=== PATIENT | female | born 1935 | race Caucasian/White ===

== ENCOUNTER 2017-08-08 08:26 | Emergency (ER) | payer MEDICARE, BC ==
--- NOTE | 2017-08-08 09:18 | PCM.SN ---
- Free Text/Narrative Note: This is Dr. Doe dictating an addendum note as his supervising physician on this case. I agree with history and physical and the patient has only urinary complaints no flank pain fever nausea vomiting or anterior abdominal pain. She says the only reason why she came to the ER as because she could not get an appointment with her provider in the clinic. The patient does admit to me that she drinks mostly coffee all day and is not very good about hydrating with water or other liquids. We will check the UA and treat appropriately and encourage hydration.
--- NOTE | 2017-08-08 09:39 | EDM.PDOC ---
ED HPI GENERAL MEDICAL PROBLEM - General Chief Complaint: Genitourinary Problem Stated Complaint: URINARY ISSUES Time Seen by Provider: 08/08/17 09:31 Source of Information: Reports: Patient History Limitations: Reports: No Limitations - History of Present Illness INITIAL COMMENTS - FREE TEXT/NARRATIVE: HISTORY AND PHYSICAL: History of present illness: 81-year-old female presenting with a 2 day history of dysuria without any fevers, flank pain, confusion. Patient states symptoms started on Monday, with simply burning on urination, she denied any history of fevers or chills, she denied any myalgia, she denied any decreased activity, she denied any confusion or falls, she denies any history of stress/urge incontinence, she denied any nausea, vomiting, diarrhea. She did state that she does have occasional constipation which is an ongoing issue as well as shortness of breath which is an ongoing issue that she sees her primary care physician. She has not been on any recent antibiotics. She states that she follows up with her primary care physician Dr. Fraser however she was unable to get in to see him for the past couple of days and so she came into the ER. Patient denies any vaginal discharge, any lesions/rash in the genitourinary area. She denies any history of recurrent UTIs. She does state that she did have a past medical history of bladder cancer but has not been an issue for quite some time. Review of systems: As per history of present illness and below otherwise all systems reviewed and negative. Past medical history: As per history of present illness and as reviewed below otherwise noncontributory. Surgical history: As per history of present illness and as reviewed below otherwise noncontributory. Social history: No reported history of drug or alcohol abuse. Family history: As per history of present illness and as reviewed below otherwise noncontributory. Physical exam: HEENT: Atraumatic, normocephalic, pupils reactive, negative for conjunctival pallor or scleral icterus, mucous membranes moist, throat clear, neck supple, nontender, trachea midline. Lungs: Clear to auscultation, breath sounds equal bilaterally, chest nontender. Heart: S1S2, regular, negative for clicks, rubs, or JVD. Abdomen: Soft, nondistended, nontender. Negative for masses or hepatosplenomegaly. Negative for costovertebral tenderness. Pelvis: Stable nontender. Genitourinary: Deferred. Rectal: Deferred. Extremities: Atraumatic, negative for cords or calf pain. Neurovascular unremarkable, no bilateral lower extremity edema. Neuro: Awake, alert, oriented. Cranial nerves II through XII grossly unremarkable. Motor and sensory unremarkable throughout. Exam nonfocal. Diagnostics: UA: 4-5 WBC, Few bacteria, negative leukocyte esterase, nitrates negative Urine culture: pending Therapeutics: Bactrim for 5 days Impression: 82-year-old female presenting with 2 day history of dysuria, without fevers, flank plain, confusion most likely etiology is uncomplicated urinary tract infection, other etiologies to consider include pyelonephritis, complicated urinary tract infection processes. Plan: Based on the age of the patient and her urine analysis which is dirty as she does have some WBC, some bacteria without any leukocyte esterase or nitrates the decision has been made to treat the patient's uncomplicated urinary tract infection with Bactrim for 5 days. Patient is to follow-up with primary care physician in the next 2 days. If the patient has any episodes of fevers, confusion, or worsening symptoms she is to either come back to the ER or see her primary care physician right away. Definitive disposition and diagnosis as appropriate pending reevaluation and review of above. Bladder Pain Score (Numeric/FACES): 6 - Related Data Allergies Allergy/AdvReac Type Severity Reaction Status Date / Time No Known Allergies Allergy Verified 08/08/17 08:44 Home Meds: Home Meds Amitriptyline HCl 25 mg PO BID 07/08/14 [History] Aspirin [Ecotrin] 81 mg PO DAILY 07/08/14 [History] Cholecalciferol (Vitamin D3) [Vitamin D3] 2,000 units PO DAILY 07/08/14 [History ] Metoprolol Tartrate [Lopressor] 25 mg PO DAILY 07/08/14 [History] Magnesium Citrate 400 mg PO DAILY 07/04/15 [History] [place]-3/DHA/Epa/Fish Oil [[place]-3 EC Softgel] 1,000 mg PO DAILY 07/04/15 [ History] Citalopram Hydrobromide [Celexa] 20 mg PO DAILY 11/30/15 [History] Clopidogrel Bisulfate [Plavix] 75 mg PO DAILY 11/30/15 [History] Fish Oil/Borage/Flax/Om3,6,9#1 [Triple [place] Complex 3-6-9] 1 tab PO DAILY 11/30 [History] Hydrochlorothiazide/Losartan [Hyzaar 50-12.5 MG] 1 tab PO DAILY 11/30/15 [ History] atorvaSTATin Calcium [Atorvastatin Calcium] 20 mg PO DAILY 11/30/15 [History] Acetaminophen/HYDROcodone [[place] 325-5 MG] 1 tab PO Q4H PRN #40 tablet 12/02/15 [Rx] Sulfamethoxazole/Trimethoprim [Bactrim Ds Tablet] 1 each PO Q12HR 5 Days #10 tablet 08/08/17 [Rx] Past Medical History Other HEENT History: lump removal in the right ear almost 10 yrs ago Cardiovascular History: Reports: CAD, High Cholesterol, Hypertension, Stents Other Cardiovascular History: stent placement in June 2015 Gastrointestinal History: Reports: GERD, Hiatal Hernia Other Gastrointestinal History: Gallbladder CA Other OB/BYN History: Musculoskeletal History: Reports: Arthritis Other Musculoskeletal History: Carpal Tunnel Psychiatric History: Reports: Anxiety, Depression Oncologic (Cancer) History: Reports: Basal Cell Carcinoma, Bladder, Breast Other Oncologic History: recovered with those CA, fully treated almost 10 years ago - Past Surgical History Cardiovascular Surgical History: Reports: Coronary Artery Stent Female Surgical History: Reports: Breast Biopsy, Hysterectomy, Mastectomy Other Female Surgeries/Procedures: R mastectomy Oncologic Surgical History: Reports: Biopsy of Breast, Mastectomy Social & Family History - Family History Family Medical History: Noncontributory - Tobacco Use Smoking Status *Q: Current Every Day Smoker Years of Tobacco use: 60 Packs/Tins Daily: 1 Second Hand Smoke Exposure: Yes - Caffeine Use Caffeine Use: Reports: Coffee - Alcohol Use Days Per Week of Alcohol Use: 0 Number of Drinks Per Day: 0 Total Drinks Per Week: 0 - Recreational Drug Use Recreational Drug Use: No Drug Use in Last 12 Months: No ED ROS GENERAL - Review of Systems Review Of Systems: ROS reveals no pertinent complaints other than HPI. ED EXAM, RENAL/ - Physical Exam Exam: See Below (Please refer to the history of present illness) Course - Vital Signs Last Recorded V/S: Last Vital Signs Temp 37.1 C 08/08/17 08:37 Pulse 95 08/08/17 08:37 Resp 20 08/08/17 08:37 BP 119/70 08/08/17 08:37 Pulse Ox 95 08/08/17 08:37 - Orders/Labs/Meds Orders: Active Orders 24 hr Category Date Time Status CULTURE URINE [RM] Stat Lab 08/08/17 09:10 Received Labs: Laboratory Tests 08/08/17 Range/Units 09:10 Urine Color YELLOW Urine Appearance CLEAR Urine pH 6.0 (5.0-8.0) Ur Specific [place] 1.025 (1.001-1.035) Urine Protein 100 (NEGATIVE) mg/dL Urine Glucose (UA) NEGATIVE (NEGATIVE) mg/dL Urine Ketones TRACE H (NEGATIVE) mg/dL Urine Occult Blood NEGATIVE (NEGATIVE) Urine Nitrite NEGATIVE (NEGATIVE) Urine Bilirubin NEGATIVE (NEGATIVE) Urine Urobilinogen 0.2 (<2.0) EU/dL Ur Leukocyte Esterase NEGATIVE (NEGATIVE) Urine RBC 2-4 (0-2/HPF) Urine WBC 4-5 (0-5/HPF) Ur Epithelial Cells FEW (NONE-FEW) Urine Bacteria FEW (NEGATIVE) Departure - Departure Time of Disposition: 10:30 Disposition: Home, Self-Care 01 Condition: Good Clinical Impression: UTI, Urinary tract infectious disease, Dysuria - Discharge Information Prescriptions: Sulfamethoxazole/Trimethoprim [Bactrim Ds Tablet] 1 each PO Q12HR 5 Days #10 tablet Referrals: Jose Luis Oliveira DO [Physician] - 2 Days Forms: ED Department Discharge Additional Instructions: The following information is given to patients seen in the emergency department who are being discharged to home. This information is to outline your options for follow-up care. We provide all patients seen in our emergency department with a follow-up referral. The need for follow-up, as well as the timing and circumstances, are variable depending upon the specifics of your emergency department visit. If you don't have a primary care physician on staff, we will provide you with a referral. We always advise you to contact your personal physician following an emergency department visit to inform them of the circumstance of the visit and for follow-up with them and/or the need for any referrals to a consulting specialist. The emergency department will also refer you to a specialist when appropriate. This referral assures that you have the opportunity for follow-up care with a specialist. All of these measure are taken in an effort to provide you with optimal care, which includes your follow-up. Under all circumstances we always encourage you to contact your private physician who remains a resource for coordinating your care. When calling for follow-up care, please make the office aware that this follow-up is from your recent emergency room visit. If for any reason you are refused follow-up, please contact the [facility] Emergency Department at and asked to speak to the emergency department charge nurse. Diagnosis: Uncomplicated urinary tract infection Impressions/discharge instructions: Based on a urine analysis and your presenting symptoms you have a uncomplicated urinary tract infection. For the infection I am putting you on Bactrim; please take 1 pill every 12 hours for the next 5 days. If you have any episodes of fevers, confusion, falls, or worsening symptoms please do not hesitate to come back to the ER or see your primary care physician. Your urine also looked quite dark which indicated that you were slightly dehydrated, because you do take a lot of caffeine please make sure to drink a lot of water to have proper hydration. Please see your primary care physician Dr. Fraser in the next 2 days for an outpatient follow-up.
[2017-08-08 10:43] VITALS: BP 121/60
== END 2017-08-08 10:39 | disposition home or self-care (01) ==
LOC: MW.ED 08:26
DX: N39.0 Urinary tract infection, site not specified (principal); F17.210 Nicotine dependence, cigarettes, uncomplicated; I10 Essential (primary) hypertension; I25.10 Atherosclerotic heart disease of native coronary artery without angina pectoris; E78.00 Pure hypercholesterolemia, unspecified; K21.9 Gastro-esophageal reflux disease without esophagitis; M19.90 Unspecified osteoarthritis, unspecified site; F32.9 Major depressive disorder, single episode, unspecified; Z85.3 Personal history of malignant neoplasm of breast; Z85.828 Personal history of other malignant neoplasm of skin; Z85.51 Personal history of malignant neoplasm of bladder; Z90.11 Acquired absence of right breast and nipple; Z95.5 Presence of coronary angioplasty implant and graft; Z90.710 Acquired absence of both cervix and uterus; Z79.82 Long term (current) use of aspirin; Z79.899 Other long term (current) drug therapy
CPT/HCPCS: 81001; 87086; 99283

== ENCOUNTER 2017-09-10 10:55 | Inpatient (IN) | payer MEDICARE, BC ==
[2017-09-10] MEDS ORDERED: Albuterol/Ipratropium 3.0-0.5 MG/3 ML Neb Soln NEB ONE (11:10)
[2017-09-10] MEDS ORDERED: Sodium Chloride 0.9% 10 ML Syringe FLUSH PRN (11:15)
[2017-09-10] MEDS ORDERED: Sodium Chloride 0.9% 2.5 ML Syringe FLUSH PRN (11:15)
--- NOTE | 2017-09-10 11:15 | EDM.PDOC ---
ED HPI GENERAL MEDICAL PROBLEM - General Chief Complaint: Respiratory Problem Stated Complaint: FEVER Time Seen by Provider: 09/10/17 11:00 Source of Information: Reports: Patient, Family History Limitations: Reports: No Limitations - History of Present Illness INITIAL COMMENTS - FREE TEXT/NARRATIVE: HISTORY AND PHYSICAL: History of present illness: [Presents to the emergency room by private vehicle accompanied by family with complaints of increased shortness of breath. The patient states that she always feels short of breath but has worsened over the past few days. Her PCP, Dr. buchanan, has recently put her on Symbicort which was not effective for her shortness of breath and another inhaler which also was not effective. She presents also complaining of an 8 pound weight increase over the past 1 month. She denies chest pain and is not having any difficulty breathing but complains of feeling short of breath. Has not had any change in her appetite. No abdominal pain nausea or vomiting. No fever or chills. Has had a mild dry cough but nonproductive. O2 sat was 86% on room air after walking into the ER documentation nurse area and getting into exam bed. 2 L of O2 increase that to 98%. She denies fever and chills. No sore throat or runny nose. No pain in her chest or elsewhere. Her appetite has been normal for her. No nausea, vomiting, constipation or diarrhea. Has noticed swelling to her ankles and lower legs and they feel tight. Has a known history of hypertension, COPD, CAD, [place].] Review of systems: As per history of present illness and below otherwise all systems reviewed and negative. Past medical history: As per history of present illness and as reviewed below otherwise noncontributory. Surgical history: As per history of present illness and as reviewed below otherwise noncontributory. Social history: No reported history of drug or alcohol abuse. Family history: As per history of present illness and as reviewed below otherwise noncontributory. Physical exam: HEENT: Atraumatic, normocephalic. Oral mucous membranes are pink and moist. Lungs: Crackles are appreciated to posterior lower lung bases. Breath sounds are equal bilaterally. Heart: S1S2, irregularly irregular. No S3-S4. Abdomen: Soft, nondistended, nontender. No masses guarding or rebound. No CVA tenderness. Pelvis: Stable nontender. Genitourinary: Deferred. Rectal: Deferred. Extremities: Atraumatic. Edema is noted to the lower legs less than 3 mm. Dry irritated skin is noted to right anterior lower leg. Secondary changes related to scratching. Neurovascular unremarkable. Neuro: Awake, alert, oriented. Motor and sensory unremarkable throughout. Exam nonfocal. Diagnostics: [Chest x-ray, EKG, CBC, CMP, BNP, UA, lactic acid] Therapeutics: [Saline lock, DuoNeb] Impression: [New-onset atrial fibrillation] Plan: [Cases reviewed with Dr. Abbott who agrees to accept patient for inpatient management. Chest x-ray is unremarkable. White count within normal limit. EKG shows new onset atrial fibrillation when compared with previous of November 2016. BNP is just under 2100. Lactic acid and urinalysis are normal. Discussed with patient that hospitalization is recommended and she is in agreement with today's plan.] Definitive disposition and diagnosis as appropriate pending reevaluation and review of above. - Related Data Allergies Allergy/AdvReac Type Severity Reaction Status Date / Time No Known Allergies Allergy Verified 09/10/17 11:05 Home Meds: Home Meds Amitriptyline HCl 25 mg PO BID 07/08/14 [History] Aspirin [Ecotrin] 81 mg PO DAILY 07/08/14 [History] Cholecalciferol (Vitamin D3) [Vitamin D3] 2,000 units PO DAILY 07/08/14 [History ] Metoprolol Tartrate [Lopressor] 25 mg PO DAILY 07/08/14 [History] Magnesium Citrate 400 mg PO DAILY 07/04/15 [History] [place]-3/DHA/Epa/Fish Oil [[place]-3 EC Softgel] 1,000 mg PO DAILY 07/04/15 [ History] Citalopram Hydrobromide [Celexa] 20 mg PO DAILY 11/30/15 [History] Clopidogrel Bisulfate [Plavix] 75 mg PO DAILY 11/30/15 [History] Fish Oil/Borage/Flax/Om3,6,9#1 [Triple [place] Complex 3-6-9] 1 tab PO DAILY 11/30 [History] Hydrochlorothiazide/Losartan [Hyzaar 50-12.5 MG] 1 tab PO DAILY 11/30/15 [ History] atorvaSTATin Calcium [Atorvastatin Calcium] 20 mg PO DAILY 11/30/15 [History] Acetaminophen/HYDROcodone [[place] 325-5 MG] 1 tab PO Q4H PRN #40 tablet 12/02/15 [Rx] Sulfamethoxazole/Trimethoprim [Bactrim Ds Tablet] 1 each PO Q12HR 5 Days #10 tablet 08/08/17 [Rx] Past Medical History Other HEENT History: lump removal in the right ear almost 10 yrs ago Cardiovascular History: Reports: CAD, High Cholesterol, Hypertension, Stents Other Cardiovascular History: stent placement in June 2015 Gastrointestinal History: Reports: GERD, Hiatal Hernia Other Gastrointestinal History: Gallbladder CA Other OB/BYN History: Musculoskeletal History: Reports: Arthritis Other Musculoskeletal History: Carpal Tunnel Psychiatric History: Reports: Anxiety, Depression Oncologic (Cancer) History: Reports: Basal Cell Carcinoma, Bladder, Breast Other Oncologic History: recovered with those CA, fully treated almost 10 years ago - Past Surgical History Cardiovascular Surgical History: Reports: Coronary Artery Stent Female Surgical History: Reports: Breast Biopsy, Hysterectomy, Mastectomy Other Female Surgeries/Procedures: R mastectomy Oncologic Surgical History: Reports: Biopsy of Breast, Mastectomy Social & Family History - Family History Family Medical History: Noncontributory - Tobacco Use Smoking Status *Q: Current Every Day Smoker Years of Tobacco use: 50 Packs/Tins Daily: 0.5 Second Hand Smoke Exposure: Yes - Caffeine Use Caffeine Use: Reports: Coffee - Alcohol Use Days Per Week of Alcohol Use: 0 Number of Drinks Per Day: 0 Total Drinks Per Week: 0 - Recreational Drug Use Recreational Drug Use: No Drug Use in Last 12 Months: No ED ROS GENERAL - Review of Systems Review Of Systems: ROS reveals no pertinent complaints other than HPI. ED EXAM, GENERAL - Physical Exam Exam: See Below Course - Vital Signs Last Recorded V/S: Last Vital Signs Temp 97.8 F 09/10/17 11:05 Pulse 77 09/10/17 11:05 Resp 20 09/10/17 11:05 BP 105/56 L 09/10/17 11:05 Pulse Ox 86 L 09/10/17 11:05 - Orders/Labs/Meds Orders: Active Orders 24 hr Category Date Time Status Patient Status [ADT] Stat ADT 09/10/17 12:44 Active Cardiac Monitoring [RC] . DIRECTED Care 09/10/17 11:06 Active EKG Documentation Completion [RC] STAT Care 09/10/17 11:06 Active RT Aerosol Therapy [RC] ASDIRECTED Care 09/10/17 11:10 Active Chest 2V [CR] Stat Exams 09/10/17 11:07 Taken UA W/MICROSCOPIC [URIN] Stat Lab 09/10/17 12:32 Results Sodium Chloride 0.9% [Saline Flush] Med 09/10/17 11:15 Active 10 ml FLUSH ASDIRECTED PRN Sodium Chloride 0.9% [Saline Flush] Med 09/10/17 11:15 Active 2.5 ml FLUSH ASDIRECTED PRN Saline Lock Insert [OM.PC] Stat Oth 09/10/17 11:15 Ordered Medication Orders Sodium Chloride (Saline Flush) 10 ml FLUSH ASDIRECTED PRN PRN Reason: Keep Vein Open Sodium Chloride (Saline Flush) 2.5 ml FLUSH ASDIRECTED PRN PRN Reason: Keep Vein Open Labs: Laboratory Tests 09/10/17 09/10/17 09/10/17 Range/Units 11:14 11:14 11:14 WBC 8.06 (4.0-11.0) K/uL RBC 4.07 L (4.30-5.90) M/uL Hgb 12.6 (12.0-16.0) g/dL Hct 38.8 (36.0-46.0) % MCV 95.3 (80.0-98.0) fL MCH 31.0 (27.0-32.0) pg MCHC 32.5 (31.0-37.0) g/dL RDW Std Deviation 53.0 (28.0-62.0) fl RDW Coeff of Rodri 15 (11.0-15.0) % Plt Count 240 (150-400) K/uL MPV 10.80 (7.40-12.00) fL Neut % (Auto) 75.4 (48.0-80.0) % Lymph % (Auto) 14.5 L (16.0-40.0) % [place] % (Auto) 9.2 (0.0-15.0) % Eos % (Auto) 0.7 (0.0-7.0) % Baso % (Auto) 0.2 (0.0-1.5) % Neut # (Auto) 6.1 H (1.4-5.7) K/uL Lymph # (Auto) 1.2 (0.6-2.4) K/uL [place] # (Auto) 0.7 (0.0-0.8) K/uL Eos # (Auto) 0.1 (0.0-0.7) K/uL Baso # (Auto) 0.0 (0.0-0.1) K/uL Nucleated RBC % 0.0 /100WBC Nucleated RBCs # 0 K/uL Lactate 1.5 (0.20-2.00) mmol/L Sodium 137 (136-146) mmol/L Potassium 3.9 (3.5-5.1) mmol/L Chloride 105 (98-110) mmol/L Carbon Dioxide 20 L (21-31) mmol/L BUN 14 (6.0-23.0) mg/dL Creatinine 0.8 (0.6-1.5) mg/dL Est Cr Clr Drug Dosing 49.88 mL/min Estimated GFR (MDRD) > 60.0 ml/min Glucose 126 H (60-110) mg/dL Calcium 9.1 (8.8-10.8) mg/dL Total Bilirubin 1.4 (0.1-1.5) mg/dL AST 28 (5-40) IU/L ALT 21 (8-54) IU/L Alkaline Phosphatase 146 (40-150) B-Natriuretic Peptide (<100) PG/ML Total Protein 6.6 (6.0-8.0) g/dL Albumin 3.7 (3.4-4.8) g/dL Globulin 2.9 (2.0-3.5) g/dL Albumin/Globulin Ratio 1.3 (1.3-2.8) Urine Color Urine Appearance Urine pH (5.0-8.0) Ur Specific [place] (1.001-1.035) Urine Protein (NEGATIVE) mg/dL Urine Glucose (UA) (NEGATIVE) mg/dL Urine Ketones (NEGATIVE) mg/dL Urine Occult Blood (NEGATIVE) Urine Nitrite (NEGATIVE) Urine Bilirubin (NEGATIVE) Urine Urobilinogen (<2.0) EU/dL Ur Leukocyte Esterase (NEGATIVE) 09/10/17 09/10/17 Range/Units 11:14 12:32 WBC (4.0-11.0) K/uL RBC (4.30-5.90) M/uL Hgb (12.0-16.0) g/dL Hct (36.0-46.0) % MCV (80.0-98.0) fL MCH (27.0-32.0) pg MCHC (31.0-37.0) g/dL RDW Std Deviation (28.0-62.0) fl RDW Coeff of Rodri (11.0-15.0) % Plt Count (150-400) K/uL MPV (7.40-12.00) fL Neut % (Auto) (48.0-80.0) % Lymph % (Auto) (16.0-40.0) % [place] % (Auto) (0.0-15.0) % Eos % (Auto) (0.0-7.0) % Baso % (Auto) (0.0-1.5) % Neut # (Auto) (1.4-5.7) K/uL Lymph # (Auto) (0.6-2.4) K/uL [place] # (Auto) (0.0-0.8) K/uL Eos # (Auto) (0.0-0.7) K/uL Baso # (Auto) (0.0-0.1) K/uL Nucleated RBC % /100WBC Nucleated RBCs # K/uL Lactate (0.20-2.00) mmol/L Sodium (136-146) mmol/L Potassium (3.5-5.1) mmol/L Chloride (98-110) mmol/L Carbon Dioxide (21-31) mmol/L BUN (6.0-23.0) mg/dL Creatinine (0.6-1.5) mg/dL Est Cr Clr Drug Dosing mL/min Estimated GFR (MDRD) ml/min Glucose (60-110) mg/dL Calcium (8.8-10.8) mg/dL Total Bilirubin (0.1-1.5) mg/dL AST (5-40) IU/L ALT (8-54) IU/L Alkaline Phosphatase (40-150) B-Natriuretic Peptide 2095 H (<100) PG/ML Total Protein (6.0-8.0) g/dL Albumin (3.4-4.8) g/dL Globulin (2.0-3.5) g/dL Albumin/Globulin Ratio (1.3-2.8) Urine Color YELLOW Urine Appearance CLEAR Urine pH 5.5 (5.0-8.0) Ur Specific [place] 1.025 (1.001-1.035) Urine Protein 30 (NEGATIVE) mg/dL Urine Glucose (UA) NEGATIVE (NEGATIVE) mg/dL Urine Ketones NEGATIVE (NEGATIVE) mg/dL Urine Occult Blood NEGATIVE (NEGATIVE) Urine Nitrite NEGATIVE (NEGATIVE) Urine Bilirubin NEGATIVE (NEGATIVE) Urine Urobilinogen 0.2 (<2.0) EU/dL Ur Leukocyte Esterase NEGATIVE (NEGATIVE) Meds: Medications Generic Name Dose Route Start Last Admin Trade Name Freq PRN Reason Stop Dose Admin Sodium Chloride 10 ml 09/10/17 11:15 Saline Flush FLUSH ASDIRECTED PRN Keep Vein Open Sodium Chloride 2.5 ml 09/10/17 11:15 Saline Flush FLUSH ASDIRECTED PRN Keep Vein Open Discontinued Medications Generic Name Dose Route Start Last Admin Trade Name Freq PRN Reason Stop Dose Admin Albuterol/Ipratropium 3 ml 09/10/17 11:10 09/10/17 11:14 Duoneb 3.0-0.5 Mg/3 Ml NEB 09/10/17 11:11 3 ml ONETIME ONE Administration Departure - Departure Time of Disposition: 12:45 Disposition: Admitted As Inpatient 66 Condition: Good Clinical Impression: Atrial fibrillation with controlled ventricular rate - Discharge Information Referrals: Jose Luis Oliveira DO [Primary Care Provider] - Forms: ED Department Discharge - My Orders Last 24 Hours: My Active Orders 09/10/17 11:06 Cardiac Monitoring [RC] . DIRECTED EKG Documentation Completion [RC] STAT 09/10/17 11:07 Chest 2V [CR] Stat 09/10/17 11:10 RT Aerosol Therapy [RC] ASDIRECTED 09/10/17 11:15 Sodium Chloride 0.9% [Saline Flush] 10 ml FLUSH ASDIRECTED PRN Sodium Chloride 0.9% [Saline Flush] 2.5 ml FLUSH ASDIRECTED PRN Saline Lock Insert [OM.PC] Stat 09/10/17 12:32 UA W/MICROSCOPIC [URIN] Stat 09/10/17 12:44 Patient Status [ADT] Stat - Assessment/Plan Last 24 Hours: My Active Orders 09/10/17 11:06 Cardiac Monitoring [RC] . DIRECTED EKG Documentation Completion [RC] STAT 09/10/17 11:07 Chest 2V [CR] Stat 09/10/17 11:10 RT Aerosol Therapy [RC] ASDIRECTED 09/10/17 11:15 Sodium Chloride 0.9% [Saline Flush] 10 ml FLUSH ASDIRECTED PRN Sodium Chloride 0.9% [Saline Flush] 2.5 ml FLUSH ASDIRECTED PRN Saline Lock Insert [OM.PC] Stat 09/10/17 12:32 UA W/MICROSCOPIC [URIN] Stat 09/10/17 12:44 Patient Status [ADT] Stat
[2017-09-10 11:48] LABS: CHLORIDE,CL 105 mmol/L (98-110); SODIUM,NA 137 mmol/L (136-146)
[2017-09-10] MEDS ORDERED: Acetaminophen 325 MG Tab PO PRN (13:51)
[2017-09-10] MEDS ORDERED: Acetaminophen/HYDROcodone 325-5 MG Tab PO PRN (13:54)
[2017-09-10] MEDS ORDERED: Enoxaparin 40 MG/0.4 ML Syringe SUBCUT SCH ×2 (14:00)
[2017-09-10] MEDS ORDERED: Furosemide 40 MG/4 ML VIAL IVPUSH ONE (14:00)
--- NOTE | 2017-09-10 14:15 | PCM.HP ---
H&P History of Present Illness - General Date of Service: 09/10/17 Admit Problem/Dx: Shortness of breath, Atrial Fibrillation Source of Information: Patient History Limitations: Reports: No Limitations - History of Present Illness Initial Comments - Free Text/Narative: This is a 82-year-old female with a past medical history significant for hypertension, hyperlipidemia, aortic stenosis and a history of a bypass graft and stent placement coming in today with a chief complaint of shortness of breath. As per the patient, she has been experiencing worsening shortness of breath especially upon activity for the past few months now that has pretty been progressively getting worse specifically this past week. She tells me that she was seen by her primary care provider 2 weeks ago, who started her on a Symbicort inhaler which has not provided any relief. She tells me that she came in today because she is noticed leg swelling which is completely new for her. On arrival to the emergency room, the patient was saturating in the mid 80s on room air, was placed on to 2 L of oxygen and responded well to that. She was also given a DuoNeb. EKG demonstrated atrial fibrillation with normal ventricular rate. When I met her, she had no specific complaints. She tells me that her shortness of breath had completely resolved. She denied any headaches, blurry vision, palpitations, chest pain, numbness or tingling. - Related Data Allergies/Adverse Reactions: Allergies Allergy/AdvReac Type Severity Reaction Status Date / Time No Known Allergies Allergy Verified 09/10/17 11:05 Home Medications: Home Meds Amitriptyline HCl 50 mg PO BEDTIME 07/08/14 [History] Aspirin [Ecotrin] 81 mg PO DAILY 07/08/14 [History] Cholecalciferol (Vitamin D3) [Vitamin D3] 2,000 units PO DAILY 07/08/14 [History ] Magnesium Citrate 100 mg PO DAILY 07/04/15 [History] [place]-3/DHA/Epa/Fish Oil [[place]-3 EC Softgel] 1,000 mg PO DAILY 07/04/15 [ History] Citalopram Hydrobromide [Celexa] 20 mg PO DAILY 11/30/15 [History] Hydrochlorothiazide/Losartan [Hyzaar 50-12.5 MG] 1 tab PO DAILY 11/30/15 [ History] Budesonide/Formoterol [Symbicort 80-4.5 MCG] 2 puff INH BID 09/10/17 [History] Metoprolol Tartrate 25 mg PO BID 09/10/17 [History] atorvaSTATin [Lipitor] 20 mg PO DAILY 09/10/17 [History] Past Medical History Other HEENT History: lump removal in the right ear almost 10 yrs ago Cardiovascular History: Reports: CAD, High Cholesterol, Hypertension, Stents Other Cardiovascular History: stent placement in June 2015 Gastrointestinal History: Reports: GERD, Hiatal Hernia Other Gastrointestinal History: Gallbladder CA Other OB/BYN History: Musculoskeletal History: Reports: Arthritis Other Musculoskeletal History: Carpal Tunnel Psychiatric History: Reports: Anxiety, Depression Oncologic (Cancer) History: Reports: Basal Cell Carcinoma, Bladder, Breast Other Oncologic History: recovered with those CA, fully treated almost 10 years ago - Past Surgical History Cardiovascular Surgical History: Reports: Coronary Artery Stent Female Surgical History: Reports: Breast Biopsy, Hysterectomy, Mastectomy Other Female Surgeries/Procedures: R mastectomy Oncologic Surgical History: Reports: Biopsy of Breast, Mastectomy Social & Family History - Family History Family Medical History: Noncontributory - Tobacco Use Smoking Status *Q: Current Every Day Smoker Years of Tobacco use: 50 Packs/Tins Daily: 0.5 Second Hand Smoke Exposure: Yes - Caffeine Use Caffeine Use: Reports: Coffee - Alcohol Use Days Per Week of Alcohol Use: 0 Number of Drinks Per Day: 0 Total Drinks Per Week: 0 - Recreational Drug Use Recreational Drug Use: No Drug Use in Last 12 Months: No H&P Review of Systems - Review of Systems: Review Of Systems: See Below General: Reports: Weight Gain HEENT: Reports: No Symptoms Pulmonary: Reports: Shortness of Breath Cardiovascular: Reports: Dyspnea on Exertion Gastrointestinal: Reports: No Symptoms Genitourinary: Reports: No Symptoms Musculoskeletal: Reports: No Symptoms Skin: Reports: No Symptoms Psychiatric: Reports: No Symptoms Neurological: Reports: No Symptoms Hematologic/Lymphatic: Reports: No Symptoms Immunologic: Reports: No Symptoms Exam - Exam Exam: See Below - Vital Signs Vital Signs: Last Vital Signs Temp 36.6 C 09/10/17 11:05 Pulse 79 09/10/17 12:45 Resp 18 09/10/17 12:45 BP 129/70 09/10/17 12:45 Pulse Ox 98 09/10/17 12:45 Weight: 85.1 kg - Exam Quality Assessment: Supplemental Oxygen General: Alert, Oriented, Cooperative HEENT: Conjunctiva Clear, EOMI, Hearing Intact, Mucosa Moist & [place] Neck: Supple, Trachea Midline, +2 Carotid Pulse wo Bruit, Full Range of Motion. No: Carotid Bruit, JVD Lungs: Other (Crackles in the left lower lobe. Symmetric chest expansion. Rest of the lung sauceda are clear moving air well) Cardiovascular: Regular Rate, Irregular Rhythm GI/Abdominal Exam: Normal Bowel Sounds, Soft Back Exam: Normal Inspection, Full Range of Motion. No: CVA Tenderness (L), CVA Tenderness (R) Extremities: Normal Inspection, Pedal Edema Skin: Warm, Intact, Other (Venous stasis dermatitis bilaterally on the lower extremities) Neuro Extensive - Motor, Sensory, Reflexes: CN II-XII Intact, Normal Gait - Patient Data Result Diagrams: 09/10/17 11:14 09/10/17 11:14 *Q Meaningful Use (ADM) - VTE *Q VTE Criteria *Q: - Stroke *Q Stroke Criteria *Q: - AMI *Q AMI Criteria *Q: Problem List Initiated/Reviewed/Updated: Yes Orders Last 24hrs: Active Orders 24 hr Category Date Time Status Oxygen Therapy [RC] PRN Care 09/10/17 13:51 Active Oxygen Therapy [RC] PRN Care 09/10/17 13:51 Active Up ad Laurie [RC] ASDIRECTED Care 09/10/17 13:51 Active VTE/DVT Education [RC] PER UNIT ROUTINE Care 09/10/17 13:51 Active VTE/DVT Education [RC] PER UNIT ROUTINE Care 09/10/17 13:51 Active Vital Signs [RC] Q4H Care 09/10/17 13:51 Active Vital Signs [RC] Q4H Care 09/10/17 13:51 Active 2 Gram Sodium Diet [DIET] Diet 09/10/17 Dinner Active Echo 2D wo Cont [US] Routine Exams 09/10/17 13:56 Ordered BASIC METABOLIC PANEL,BMP [CHEM] AM Lab 09/11/17 05:11 Ordered CBC WITH AUTO DIFF [HEME] AM Lab 09/11/17 05:11 Ordered Acetaminophen [Tylenol] Med 09/10/17 13:51 Active 650 mg PO Q4H PRN Acetaminophen/HYDROcodone [[place] 325-5 MG] Med 09/10/17 13:54 Active 1 tab PO Q4H PRN Amitriptyline [Elavil] Med 09/10/17 21:00 Active 25 mg PO BID Aspirin [Halfprin] Med 09/11/17 09:00 Active 81 mg PO DAILY Cholecalciferol (Vitamin D3) [Vitamin D3] Med 09/11/17 09:00 Active 2,000 units PO DAILY Citalopram [Celexa] Med 09/11/17 09:00 Active 20 mg PO DAILY Clopidogrel [Plavix] Med 09/11/17 09:00 Active 75 mg PO DAILY Enoxaparin [Lovenox] Med 09/10/17 14:00 Active 40 mg SUBCUT Q24H Fish Oil/[place]-3 Fatty Acids [Fish Oil] Med 09/11/17 09:00 Active 1 gm PO DAILY Hydrochlorothiazide/Losartan [Hyzaar 50-12.5 MG] Med 09/11/17 09:00 Active 1 tab PO DAILY Magnesium Oxide Med 09/11/17 09:00 Active 400 mg PO DAILY Metoprolol Tartrate [Lopressor] Med 09/11/17 09:00 Active 25 mg PO DAILY atorvaSTATin [Lipitor] Med 09/11/17 09:00 Active 20 mg PO DAILY Resuscitation Status Routine Resus Stat 09/10/17 13:51 Ordered Medication Orders Acetaminophen (Tylenol) 650 mg PO Q4H PRN PRN Reason: Pain (Mild 1-3)/fever Hydrocodone Bitart/Acetaminophen ([place] 325-5 Mg) 1 tab PO Q4H PRN PRN Reason: Pain Amitriptyline HCl (Elavil) 25 mg PO BID [facility] Aspirin (Halfprin) 81 mg PO DAILY [facility] Atorvastatin Calcium (Lipitor) 20 mg PO DAILY [facility] Cholecalciferol (Vitamin D3) 2,000 units PO DAILY [facility] Citalopram Hydrobromide (Celexa) 20 mg PO DAILY [facility] Clopidogrel Bisulfate (Plavix) 75 mg PO DAILY [facility] Enoxaparin Sodium (Lovenox) 40 mg SUBCUT Q24H [facility] Fish Oil (Fish Oil) 1 gm PO DAILY [facility] HCTZ/Losartan Potassium (Hyzaar 50-12.5 Mg) 1 tab PO DAILY [facility] Magnesium Oxide (Magnesium Oxide) 400 mg PO DAILY [facility] Metoprolol Tartrate (Lopressor) 25 mg PO DAILY [facility] Sodium Chloride (Saline Flush) 10 ml FLUSH ASDIRECTED PRN PRN Reason: Keep Vein Open Sodium Chloride (Saline Flush) 2.5 ml FLUSH ASDIRECTED PRN PRN Reason: Keep Vein Open Assessment/Plan Comment:: Assessment #1. Congestive heart failure exacerbation secondary likely to medication not being optimized or compliance #2. Shortness of breath secondary to 1 #3. Hypoxia secondary to #1 #4. Pedal edema secondary to an likely #1 #5. Elevated BNP #6. New onset atrial fibrillation with normal ventricular rate #7. History of hypertension, hyperlipidemia, aortic stenosis, breast cancer, bladder cancer, cardiac bypass, PCI with stent placement Plan #1. Admit to the regular floor for observation #2. Cardiac diet #3. Vital signs per floor routine. Up ad laurie. #4. Strict I's and O's #5. Cardiac telemetry #6. 40 mg IV Lasix once #7. CBC, BMP ordered for tomorrow morning #8. Echocardiogram #9. Continue home medications #10. Lovenox for DVT prophylaxis
[2017-09-10] MEDS ORDERED: Magnesium Sulfate/Water 2 GM in Premix Bag 1 BAG IV ONE (19:05)
[2017-09-10] MEDS ORDERED: Amitriptyline 25 MG Tab PO SCH ×2 (21:00)
[2017-09-10] MEDS: Metoprolol Tartrate 25 MG Tab PO SCH (22:47)
[2017-09-11 06:07] LABS: CHLORIDE,CL 103 mmol/L (98-110); SODIUM,NA 138 mmol/L (136-146)
[2017-09-11] MEDS: Metoprolol Tartrate 25 MG Tab PO SCH (08:03)
[2017-09-11] MEDS ORDERED: [UNRECOGNIZED DRUG - OTHER] PO SCH (09:00)
[2017-09-11] MEDS ORDERED: atorvaSTATin 20 MG Tab PO SCH (09:00)
[2017-09-11] MEDS ORDERED: Fish Oil/Omega-3 Fatty Acids 1 Gm Cap PO SCH (09:00)
[2017-09-11] MEDS ORDERED: Hydrochlorothiazide/Losartan 12.5-50 mg Tab PO SCH (09:00)
[2017-09-11] MEDS ORDERED: Clopidogrel 75 MG Tab PO SCH (09:00)
[2017-09-11] MEDS ORDERED: DHA PO SCH (09:00)
[2017-09-11] MEDS ORDERED: FISH OIL PO SCH (09:00)
[2017-09-11] MEDS ORDERED: EPA PO SCH (09:00)
[2017-09-11] MEDS ORDERED: Magnesium Oxide 400 MG Tab PO SCH (09:00)
[2017-09-11] MEDS ORDERED: Cholecalciferol (Vitamin D3) 1,000 Unit Tab PO SCH (09:00)
[2017-09-11] MEDS ORDERED: OMEGA PO SCH (09:00)
[2017-09-11] MEDS ORDERED: Citalopram 20 MG Tab PO SCH (09:00)
[2017-09-11] MEDS ORDERED: Aspirin 81 MG Tab.EC PO SCH (09:00)
[2017-09-11] MEDS ORDERED: Metoprolol Tartrate 25 MG Tab PO SCH (09:00)
--- NOTE | 2017-09-11 10:44 | CR ---
EXAM DATE: 09/10/17 PATIENT'S AGE: 82 Patient: TAMMY GUZMAN Facility: [place], [place] Site . Site : [id number] Study: XRay Chest [id number] 11:57:24 AM Ordering Physician: Doctor Solis Final Report: CHEST 2 VIEWS INDICATION: Short of breath COMPARISON: July 04, 2015 IMPRESSION: Stable heart size and vascular pattern. Lungs are clear. No pneumothorax or pleural abnormality. No overall change Cardiomegaly. Prior sternotomy. Mildly prominent interstitial markings. Kyphosis thoracic spine with osteopenia. Dictated by Fahad Cristobal MD @ Sep 10 2017 12:01PM (Electronic Signature) Report Signed by Proxy. MADELYN
[2017-09-11] MEDS ORDERED: Magnesium Sulfate/Water 4 GM in Premix Bag 1 BAG IV ONE (10:50)
--- NOTE | 2017-09-11 12:22 | PCM.DCSUM1 ---
<Jose Guajardo - Last Filed: 09/11/17 12:18> Discharge Summary - Hospital Course Free Text/Narrative:: Admission date September 10, 2017 Discharge date September 11, 2017 Admission diagnosis #1. CHF exacerbation #2. Choice of breath secondary and hypoxia to #1 #3. New onset atrial fibrillation #4. History of hypertension coronary artery disease breast cancer bladder cancer Discharge diagnosis #1. CHF exacerbation that has improved with no more signs of hypoxia or shortness of breath saturating well on room air #2. New onset atrial fibrillation #3. History of hypertension coronary artery disease breast cancer bladder cancer Hospital course 82-year-old female with a history of coronary artery disease, skin just heart failure that presented to the ER complaining of a week's long duration of shortness of breath that progressively worsened and noticed leg swelling. Patient is found to be hypoxic saturating 80s on room air on presentation. She is placed on 2 L via nasal cannula and perked up. She was then admitted for CHF exacerbation. EKG also determine new onset atrial fibrillation. She was placed on telemetry which showed PVCs. 40 mg of Lasix was given to the patient IV. Patient was then weaned off of oxygen by the next morning. At the time of discharge, she stated that her shortness of breath improved greatly. An echocardiogram was obtained with results pending that can be discussed with her primary care provider. She was started on Crystal Miladys for her newfound atrial fibrillation 2.5 mg by mouth twice a day. She is also started on Lasix 20 mg daily by mouth. Disposition: Home Follow up with primary care provider Dr. Oliveira within 1 week Return precautions patient is advised to return to seek further attention if she expresses worsening shortness of breath, leg edema, chest pain or palpitations. Patient agrees to the plan. - Discharge Data Discharge Date: 09/11/17 Discharge Disposition: Home, Self-Care 01 Condition: Fair - Patient Instructions Diet: Heart Healthy Diet, Low Sodium Other/Special Instructions: chest pain, shortness of breath, fever - Discharge Plan Prescriptions/Med Rec: Apixaban [Eliquis] 2.5 mg PO BID 30 Days #60 tablet Furosemide [Lasix] 20 mg PO DAILY 30 Days #30 tablet Home Medications: Home Meds Amitriptyline HCl 50 mg PO BEDTIME 07/08/14 [History] Aspirin [Ecotrin] 81 mg PO DAILY 07/08/14 [History] Cholecalciferol (Vitamin D3) [Vitamin D3] 2,000 units PO DAILY 07/08/14 [History ] Magnesium Citrate 100 mg PO DAILY 07/04/15 [History] [place]-3/DHA/Epa/Fish Oil [[place]-3 EC Softgel] 1,000 mg PO DAILY 07/04/15 [ History] Citalopram Hydrobromide [Celexa] 20 mg PO DAILY 11/30/15 [History] Hydrochlorothiazide/Losartan [Hyzaar 50-12.5 MG] 1 tab PO DAILY 11/30/15 [ History] Budesonide/Formoterol [Symbicort 80-4.5 MCG] 2 puff INH BID 09/10/17 [History] Metoprolol Tartrate 25 mg PO BID 09/10/17 [History] atorvaSTATin [Lipitor] 20 mg PO DAILY 09/10/17 [History] Apixaban [Eliquis] 2.5 mg PO BID 30 Days #60 tablet 09/11/17 [Rx] Furosemide [Lasix] 20 mg PO DAILY 30 Days #30 tablet 09/11/17 [Rx] Metoprolol Tartrate [Lopressor] 25 mg PO BID tablet 09/11/17 [Rx] atorvaSTATin [Lipitor] 20 mg PO DAILY tablet 09/11/17 [Rx] Patient Handouts: Furosemide tablets, Apixaban oral tablets, Atrial Fibrillation, [id number] Referrals: Jose Luis Oliveira DO [Primary Care Provider] - (Please make follow-up appointment in 1 week.) Josefa Banda MD [Physician] - 09/14/17 9:00 am - Discharge Summary/Plan Comment DC Time >30 min.: No Discharge Summary/Plan Comment: Admission date September 10, 2017 Discharge date September 11, 2017 Admission diagnosis #1. CHF exacerbation #2. Choice of breath secondary and hypoxia to #1 #3. New onset atrial fibrillation #4. History of hypertension coronary artery disease breast cancer bladder cancer Discharge diagnosis #1. CHF exacerbation that has improved with no more signs of hypoxia or shortness of breath saturating well on room air #2. New onset atrial fibrillation #3. History of hypertension coronary artery disease breast cancer bladder cancer Hospital course 82-year-old female with a history of coronary artery disease, skin just heart failure that presented to the ER complaining of a week's long duration of shortness of breath that progressively worsened and noticed leg swelling. Patient is found to be hypoxic saturating 80s on room air on presentation. She is placed on 2 L via nasal cannula and perked up. She was then admitted for CHF exacerbation. EKG also determine new onset atrial fibrillation. She was placed on telemetry which showed PVCs. 40 mg of Lasix was given to the patient IV. Patient was then weaned off of oxygen by the next morning. At the time of discharge, she stated that her shortness of breath improved greatly. An echocardiogram was obtained with results pending that can be discussed with her primary care provider. She was started on [place] Miladys for her newfound atrial fibrillation 2.5 mg by mouth twice a day. She is also started on Lasix 20 mg daily by mouth. Disposition: Home Follow up with primary care provider Dr. Oliveira within 1 week Return precautions patient is advised to return to seek further attention if she expresses worsening shortness of breath, leg edema, chest pain or palpitations. Patient agrees to the plan. - Patient Data Vitals - Most Recent: Last Vital Signs Temp 36.6 C 09/11/17 08:00 Pulse 85 09/11/17 08:03 Resp 18 09/11/17 08:00 BP 146/79 H 09/11/17 08:03 Pulse Ox 93 L 09/11/17 08:00 Weight - Most Recent: 91.5 kg I&O - Last 24 hours: Intake & Output 09/10/17 09/11/17 09/11/17 22:59 06:59 14:59 Intake Total 250 500 Output Total 1000 1800 Balance -750 -1300 Lab Results - Last 24 hrs: Laboratory Results - last 24 hr 09/11/17 09/11/17 09/11/17 Range/Units 05:12 05:12 05:12 WBC 6.37 (4.0-11.0) K/uL RBC 3.94 L (4.30-5.90) M/uL Hgb 12.0 (12.0-16.0) g/dL Hct 36.8 (36.0-46.0) % MCV 93.4 (80.0-98.0) fL MCH 30.5 (27.0-32.0) pg MCHC 32.6 (31.0-37.0) g/dL RDW Std Deviation 51.7 (28.0-62.0) fl RDW Coeff of Rodri 15 (11.0-15.0) % Plt Count 192 (150-400) K/uL MPV 10.60 (7.40-12.00) fL Neut % (Auto) 70.0 (48.0-80.0) % Lymph % (Auto) 18.4 (16.0-40.0) % [place] % (Auto) 10.2 (0.0-15.0) % Eos % (Auto) 1.1 (0.0-7.0) % Baso % (Auto) 0.3 (0.0-1.5) % Neut # (Auto) 4.5 (1.4-5.7) K/uL Lymph # (Auto) 1.2 (0.6-2.4) K/uL [place] # (Auto) 0.7 (0.0-0.8) K/uL Eos # (Auto) 0.1 (0.0-0.7) K/uL Baso # (Auto) 0.0 (0.0-0.1) K/uL Nucleated RBC % 0.0 /100WBC Nucleated RBCs # 0 K/uL Sodium 138 (136-146) mmol/L Potassium 3.6 (3.5-5.1) mmol/L Chloride 103 (98-110) mmol/L Carbon Dioxide 24 (21-31) mmol/L BUN 13 (6.0-23.0) mg/dL Creatinine 0.7 (0.6-1.5) mg/dL Est Cr Clr Drug Dosing 57.01 mL/min Estimated GFR (MDRD) > 60.0 ml/min Glucose 125 H (60-110) mg/dL Calcium 8.8 (8.8-10.8) mg/dL Magnesium 1.2 L (1.5-2.3) mEq/L Med Orders - Current: Current Medications Acetaminophen (Tylenol) 650 mg PO Q4H PRN PRN Reason: Pain (Mild 1-3)/fever Hydrocodone Bitart/Acetaminophen ([place] 325-5 Mg) 1 tab PO Q4H PRN PRN Reason: Pain Amitriptyline HCl (Elavil) 50 mg PO BEDTIME [facility] Last Admin: 09/10/17 22:46 Dose: 50 mg Aspirin (Halfprin) 81 mg PO DAILY [facility] Last Admin: 09/11/17 08:02 Dose: 81 mg Atorvastatin Calcium (Lipitor) 20 mg PO DAILY [facility] Last Admin: 09/11/17 08:04 Dose: 20 mg Cholecalciferol (Vitamin D3) 2,000 units PO DAILY [facility] Last Admin: 09/11/17 08:02 Dose: 2,000 units Citalopram Hydrobromide (Celexa) 20 mg PO DAILY [facility] Last Admin: 09/11/17 08:02 Dose: 20 mg Enoxaparin Sodium (Lovenox) 40 mg SUBCUT Q24H [facility] Last Admin: 09/10/17 14:44 Dose: 40 mg HCTZ/Losartan Potassium (Hyzaar 50-12.5 Mg) 1 tab PO DAILY [facility] Last Admin: 09/11/17 08:03 Dose: 1 tab Magnesium Sulfate 4 gm/ Premix 100 mls @ 50 mls/hr IV ONETIME ONE Stop: 09/11/17 12:49 Last Admin: 09/11/17 11:06 Dose: 50 mls/hr Metoprolol Tartrate (Lopressor) 25 mg PO BID [facility] Last Admin: 09/11/17 08:03 Dose: 25 mg Sodium Chloride (Saline Flush) 10 ml FLUSH ASDIRECTED PRN PRN Reason: Keep Vein Open Sodium Chloride (Saline Flush) 2.5 ml FLUSH ASDIRECTED PRN PRN Reason: Keep Vein Open Discontinued Medications Albuterol/Ipratropium (Duoneb 3.0-0.5 Mg/3 Ml) 3 ml NEB ONETIME ONE Stop: 09/10/17 11:11 Last Admin: 09/10/17 11:14 Dose: 3 ml Amitriptyline HCl (Elavil) 25 mg PO BID [facility] Clopidogrel Bisulfate (Plavix) 75 mg PO DAILY [facility] Enoxaparin Sodium (Lovenox) 40 mg SUBCUT DAILY [facility] Fish Oil (Fish Oil) 1 gm PO DAILY [facility] Furosemide (Lasix) 40 mg IVPUSH NOW ONE Stop: 09/10/17 14:01 Last Admin: 09/10/17 14:42 Dose: 40 mg Magnesium Sulfate 2 gm/ Premix 50 mls @ 25 mls/hr IV ONETIME ONE Stop: 09/10/17 21:04 Last Admin: 09/10/17 19:36 Dose: 25 mls/hr Magnesium Oxide (Magnesium Oxide) 400 mg PO DAILY [facility] Metoprolol Tartrate (Lopressor) 25 mg PO DAILY [facility] Non-Formulary Medication ([place]-3/Dha/Epa/Fish Oil [[place]-3 Ec Softgel]) 1,000 mg PO DAILY [facility] *Q Meaningful Use (DIS) - VTE *Q VTE Criteria *Q: - Stroke *Q Stroke Criteria *Q: - AMI *Q AMI Criteria *Q: <Joe Abbott - Last Filed: 09/11/17 13:58> - Patient Data Vitals - Most Recent: Last Vital Signs Temp 36.4 C 09/11/17 12:00 Pulse 66 09/11/17 12:00 Resp 18 09/11/17 12:00 BP 117/64 09/11/17 12:00 Pulse Ox 93 L 09/11/17 12:00 I&O - Last 24 hours: Intake & Output 09/10/17 09/11/17 09/11/17 22:59 06:59 14:59 Intake Total 250 500 Output Total 1000 1800 Balance -750 -1300 Lab Results - Last 24 hrs: Laboratory Results - last 24 hr 09/11/17 09/11/17 09/11/17 Range/Units 05:12 05:12 05:12 WBC 6.37 (4.0-11.0) K/uL RBC 3.94 L (4.30-5.90) M/uL Hgb 12.0 (12.0-16.0) g/dL Hct 36.8 (36.0-46.0) % MCV 93.4 (80.0-98.0) fL MCH 30.5 (27.0-32.0) pg MCHC 32.6 (31.0-37.0) g/dL RDW Std Deviation 51.7 (28.0-62.0) fl RDW Coeff of Rodri 15 (11.0-15.0) % Plt Count 192 (150-400) K/uL MPV 10.60 (7.40-12.00) fL Neut % (Auto) 70.0 (48.0-80.0) % Lymph % (Auto) 18.4 (16.0-40.0) % [place] % (Auto) 10.2 (0.0-15.0) % Eos % (Auto) 1.1 (0.0-7.0) % Baso % (Auto) 0.3 (0.0-1.5) % Neut # (Auto) 4.5 (1.4-5.7) K/uL Lymph # (Auto) 1.2 (0.6-2.4) K/uL [place] # (Auto) 0.7 (0.0-0.8) K/uL Eos # (Auto) 0.1 (0.0-0.7) K/uL Baso # (Auto) 0.0 (0.0-0.1) K/uL Nucleated RBC % 0.0 /100WBC Nucleated RBCs # 0 K/uL Sodium 138 (136-146) mmol/L Potassium 3.6 (3.5-5.1) mmol/L Chloride 103 (98-110) mmol/L Carbon Dioxide 24 (21-31) mmol/L BUN 13 (6.0-23.0) mg/dL Creatinine 0.7 (0.6-1.5) mg/dL Est Cr Clr Drug Dosing 57.01 mL/min Estimated GFR (MDRD) > 60.0 ml/min Glucose 125 H (60-110) mg/dL Calcium 8.8 (8.8-10.8) mg/dL Magnesium 1.2 L (1.5-2.3) mEq/L Med Orders - Current: Current Medications Acetaminophen (Tylenol) 650 mg PO Q4H PRN PRN Reason: Pain (Mild 1-3)/fever Hydrocodone Bitart/Acetaminophen ([place] 325-5 Mg) 1 tab PO Q4H PRN PRN Reason: Pain Amitriptyline HCl (Elavil) 50 mg PO BEDTIME [facility] Last Admin: 09/10/17 22:46 Dose: 50 mg Aspirin (Halfprin) 81 mg PO DAILY [facility] Last Admin: 09/11/17 08:02 Dose: 81 mg Atorvastatin Calcium (Lipitor) 20 mg PO DAILY [facility] Last Admin: 09/11/17 08:04 Dose: 20 mg Cholecalciferol (Vitamin D3) 2,000 units PO DAILY [facility] Last Admin: 09/11/17 08:02 Dose: 2,000 units Citalopram Hydrobromide (Celexa) 20 mg PO DAILY [facility] Last Admin: 09/11/17 08:02 Dose: 20 mg Enoxaparin Sodium (Lovenox) 40 mg SUBCUT Q24H [facility] Last Admin: 09/10/17 14:44 Dose: 40 mg HCTZ/Losartan Potassium (Hyzaar 50-12.5 Mg) 1 tab PO DAILY [facility] Last Admin: 09/11/17 08:03 Dose: 1 tab Metoprolol Tartrate (Lopressor) 25 mg PO BID [facility] Last Admin: 09/11/17 08:03 Dose: 25 mg Sodium Chloride (Saline Flush) 10 ml FLUSH ASDIRECTED PRN PRN Reason: Keep Vein Open Sodium Chloride (Saline Flush) 2.5 ml FLUSH ASDIRECTED PRN PRN Reason: Keep Vein Open Discontinued Medications Albuterol/Ipratropium (Duoneb 3.0-0.5 Mg/3 Ml) 3 ml NEB ONETIME ONE Stop: 09/10/17 11:11 Last Admin: 09/10/17 11:14 Dose: 3 ml Amitriptyline HCl (Elavil) 25 mg PO BID [facility] Clopidogrel Bisulfate (Plavix) 75 mg PO DAILY [facility] Enoxaparin Sodium (Lovenox) 40 mg SUBCUT DAILY [facility] Fish Oil (Fish Oil) 1 gm PO DAILY [facility] Furosemide (Lasix) 40 mg IVPUSH NOW ONE Stop: 09/10/17 14:01 Last Admin: 09/10/17 14:42 Dose: 40 mg Magnesium Sulfate 2 gm/ Premix 50 mls @ 25 mls/hr IV ONETIME ONE Stop: 09/10/17 21:04 Last Admin: 09/10/17 19:36 Dose: 25 mls/hr Magnesium Sulfate 4 gm/ Premix 100 mls @ 50 mls/hr IV ONETIME ONE Stop: 09/11/17 12:49 Last Admin: 09/11/17 11:06 Dose: 50 mls/hr Magnesium Oxide (Magnesium Oxide) 400 mg PO DAILY [facility] Metoprolol Tartrate (Lopressor) 25 mg PO DAILY [facility] Non-Formulary Medication ([place]-3/Dha/Epa/Fish Oil [[place]-3 Ec Softgel]) 1,000 mg PO DAILY [facility] *Q Meaningful Use (DIS) - VTE *Q VTE Criteria *Q: - Stroke *Q Stroke Criteria *Q: - AMI *Q AMI Criteria *Q: - Free Text/Narrative Note: I have examined the patient. I have discussed findings and treatment plan with resident. I agree with the assessment and plan outlined in the following resident's note.
[2017-09-11 12:32] VITALS: BP 117/64
--- NOTE | 2017-09-13 15:17 | ECHO ---
The echocardiogram report can be seen in this patient's EMR (electronic medical record) in the Reports section. The report has also been scanned into PACS. MADELYN
== END 2017-09-11 14:00 | disposition home or self-care (01) | DRG 292 ==
LOC: MW.ED 10:55 → MW.MS 13:14
PROVIDERS: ADMIT Internal Medicine; ATTEND Internal Medicine
DX: I11.0 Hypertensive heart disease with heart failure (principal); I25.810 Atherosclerosis of coronary artery bypass graft(s) without angina pectoris; I25.10 Atherosclerotic heart disease of native coronary artery without angina pectoris; I48.91 Unspecified atrial fibrillation; I50.9 Heart failure, unspecified; R09.02 Hypoxemia; I10 Essential (primary) hypertension; E78.00 Pure hypercholesterolemia, unspecified; Z95.5 Presence of coronary angioplasty implant and graft; I25.2 Old myocardial infarction; F17.210 Nicotine dependence, cigarettes, uncomplicated; E78.5 Hyperlipidemia, unspecified; J44.9 Chronic obstructive pulmonary disease, unspecified; K21.9 Gastro-esophageal reflux disease without esophagitis; K44.9 Diaphragmatic hernia without obstruction or gangrene; M19.90 Unspecified osteoarthritis, unspecified site; F32.9 Major depressive disorder, single episode, unspecified; F41.9 Anxiety disorder, unspecified; I35.0 Nonrheumatic aortic (valve) stenosis; Z85.3 Personal history of malignant neoplasm of breast; Z85.51 Personal history of malignant neoplasm of bladder; Z79.02 Long term (current) use of antithrombotics/antiplatelets; Z79.82 Long term (current) use of aspirin; Z79.899 Other long term (current) drug therapy
CPT/HCPCS: 36415; 71020; 71020-26; 80048; 80053; 81001; 83605; 83735; 83880; 85025; 93005; 93306; 94640; 99282; 99285-25; A9270-GY; J1650; J1940; J3475

== ENCOUNTER 2017-10-09 13:45 | Emergency (ER) | payer MEDICARE, BC ==
[2017-10-09] MEDS ORDERED: Sodium Chloride 0.9% 2.5 ML Syringe FLUSH PRN (13:57)
[2017-10-09] MEDS ORDERED: Sodium Chloride 0.9% 10 ML Syringe FLUSH PRN (13:57)
[2017-10-09] MEDS ORDERED: Sodium Chloride 0.9% 250 ML IV ONE (14:04)
[2017-10-09] MEDS ORDERED: Aspirin 81 MG Tab.Chew PO ONE (14:09)
[2017-10-09] MEDS ORDERED: Tenecteplase 50 MG Kit IV ONE (14:15)
[2017-10-09] MEDS ORDERED: Nitroglycerin 0.4 MG Tab.SL ONE (14:16)
--- NOTE | 2017-10-09 14:19 | EDM.PDOC ---
ED HPI GENERAL MEDICAL PROBLEM - General Chief Complaint: Respiratory Problem Stated Complaint: SOB/BLEEDING Time Seen by Provider: 10/09/17 13:51 Source of Information: Reports: EMS History Limitations: Reports: No Limitations - History of Present Illness INITIAL COMMENTS - FREE TEXT/NARRATIVE: History of present illness: []She arrived by EMS with a chief complaint of shortness of breath. Sensation and having increasing shortness of breath for the last 2 weeks as having difficulty sleeping as it is worse at night. She has chronic leg edema and she has an ulcer on her left leg last night was "spurting". Patient denies any chest pain, dizziness, lightheadedness, sweating, nausea or vomiting. 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 Patient is on Xarelto. Review of systems: As per history of present illness and below otherwise all systems reviewed and negative. Past medical history: As per history of present illness and as reviewed below otherwise noncontributory. Surgical history: As per history of present illness and as reviewed below otherwise noncontributory. Social history: No reported history of drug or alcohol abuse. Family history: As per history of present illness and as reviewed below otherwise noncontributory. Physical exam: General: Well developed, well nourished in NAD HEENT: Atraumatic, normocephalic, pupils reactive, negative for conjunctival pallor or scleral icterus, mucous membranes moist, throat clear, neck supple, nontender, trachea midline. Lungs: Clear to auscultation, breath sounds equal bilaterally, chest nontender. Heart: S1S2, regular, negative for clicks, rubs, or JVD. Abdomen: Soft, nondistended, nontender. Negative for masses or hepatosplenomegaly. Negative for costovertebral tenderness. Pelvis: Stable nontender. Genitourinary: Deferred. Rectal: Deferred. Extremities: Atraumatic, negative for cords or calf pain. Neurovascular unremarkable. Neuro: Awake, alert, oriented. Cranial nerves II through XII unremarkable. Cerebellum unremarkable. Motor and sensory unremarkable throughout. Exam nonfocal. Diagnostics: []EKG, chest x-ray and labs ordered Therapeutics: []Aspirin, nitroglycerin, metoprolol tartrate, repeat EKG shows A. fib rate of [address] elevations re soft. Impression: []A. fib with a rate 119, ST elevation in the anterior leads on initial EKG, Acute [place] Plan: []transfer to [facility] ER. 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 Definitive disposition and diagnosis as appropriate pending reevaluation and review of above. - Related Data Allergies Allergy/AdvReac Type Severity Reaction Status Date / Time No Known Allergies Allergy Verified 09/10/17 11:05 Home Meds: Home Meds Citalopram [Celexa] 20 mg PO DAILY 10/09/17 [History] Furosemide [Lasix] 20 mg PO DAILY 10/09/17 [History] Losartan Potassium 25 mg PO DAILY 10/09/17 [History] Rivaroxaban [Xarelto] 20 mg PO DAILY 10/09/17 [History] hydrOXYzine HCl [Atarax] 10 mg PO DAILY 10/09/17 [History] Past Medical History Other HEENT History: lump removal in the right ear almost 10 yrs ago Cardiovascular History: Reports: CAD, High Cholesterol, Hypertension, Stents Other Cardiovascular History: stent placement in June 2015 Respiratory History: Reports: COPD Gastrointestinal History: Reports: GERD, Hiatal Hernia Other Gastrointestinal History: Gallbladder CA Other OB/BYN History: Musculoskeletal History: Reports: Arthritis Other Musculoskeletal History: Carpal Tunnel Psychiatric History: Reports: Anxiety, Depression Oncologic (Cancer) History: Reports: Basal Cell Carcinoma, Bladder, Breast Other Oncologic History: recovered with those CA, fully treated almost 10 years ago - Past Surgical History Cardiovascular Surgical History: Reports: Coronary Artery Stent Female Surgical History: Reports: Breast Biopsy, Hysterectomy, Mastectomy Other Female Surgeries/Procedures: R mastectomy Oncologic Surgical History: Reports: Biopsy of Breast, Mastectomy Social & Family History - Family History Family Medical History: Noncontributory Cardiac: Reports: [place] Oncologic: Reports: Liver - Tobacco Use Smoking Status *Q: Current Every Day Smoker Years of Tobacco use: 60 Packs/Tins Daily: 0.2 Used Tobacco, but Quit: No Second Hand Smoke Exposure: Yes - Caffeine Use Caffeine Use: Reports: None - Alcohol Use Days Per Week of Alcohol Use: 0 Number of Drinks Per Day: 0 Total Drinks Per Week: 0 - Recreational Drug Use Recreational Drug Use: No Drug Use in Last 12 Months: No ED ROS GENERAL - Review of Systems Review Of Systems: See Below (See history of present illness) ED EXAM, GENERAL - Physical Exam Exam: See Below (See history of present illness) Course - Vital Signs Last Recorded V/S: Last Vital Signs Temp 98.7 F 10/09/17 14:04 Pulse 52 L 10/09/17 13:48 Resp 24 H 10/09/17 13:48 BP 89/69 L 10/09/17 13:48 Pulse Ox 99 10/09/17 13:48 - Orders/Labs/Meds Orders: Active Orders 24 hr Category Date Time Status Cardiac Monitoring [RC] . DIRECTED Care 10/09/17 13:57 Active EKG Documentation Completion [RC] STAT Care 10/09/17 13:57 Active Oxygen Therapy [RC] ASDIRECTED Care 10/09/17 13:57 Active Pulse Oximetry [RC] ASDIRECTED Care 10/09/17 13:57 Active Chest 1V Frontal [CR] Stat Exams 10/09/17 13:57 Taken B-TYPE NATRIURETIC PEPTIDE,BNP [CHEM] Stat Lab 10/09/17 14:23 Ordered COMPREHENSIVE METABOLIC PN,CMP [CHEM] Stat Lab 10/09/17 13:58 Received TROPONIN I [CHEM] Stat Lab 10/09/17 13:58 Received Sodium Chloride 0.9% [Saline Flush] Med 10/09/17 13:57 Active 10 ml FLUSH ASDIRECTED PRN Sodium Chloride 0.9% [Saline Flush] Med 10/09/17 13:57 Active 2.5 ml FLUSH ASDIRECTED PRN Saline Lock Insert [OM.PC] Stat Oth 10/09/17 13:57 Ordered Medication Orders Sodium Chloride (Saline Flush) 10 ml FLUSH ASDIRECTED PRN PRN Reason: Keep Vein Open Sodium Chloride (Saline Flush) 2.5 ml FLUSH ASDIRECTED PRN PRN Reason: Keep Vein Open Labs: Laboratory Tests 10/09/17 10/09/17 Range/Units 13:58 13:58 WBC 9.64 (4.0-11.0) K/uL RBC 4.22 L (4.30-5.90) M/uL Hgb 13.3 (12.0-16.0) g/dL Hct 40.7 (36.0-46.0) % MCV 96.4 (80.0-98.0) fL MCH 31.5 (27.0-32.0) pg MCHC 32.7 (31.0-37.0) g/dL RDW Std Deviation 59.2 (28.0-62.0) fl RDW Coeff of Rodri 17 H (11.0-15.0) % Plt Count 316 (150-400) K/uL MPV 10.60 (7.40-12.00) fL Neut % (Auto) 79.9 (48.0-80.0) % Lymph % (Auto) 11.3 L (16.0-40.0) % Forest % (Auto) 8.6 (0.0-15.0) % Eos % (Auto) 0.1 (0.0-7.0) % Baso % (Auto) 0.1 (0.0-1.5) % Neut # (Auto) 7.7 H (1.4-5.7) K/uL Lymph # (Auto) 1.1 (0.6-2.4) K/uL Forest # (Auto) 0.8 (0.0-0.8) K/uL Eos # (Auto) 0.0 (0.0-0.7) K/uL Baso # (Auto) 0.0 (0.0-0.1) K/uL Nucleated RBC % 0.0 /100WBC Nucleated RBCs # 0 K/uL INR 1.95 H (0.86-1.11) Meds: Medications Generic Name Dose Route Start Last Admin Trade Name Freq PRN Reason Stop Dose Admin Sodium Chloride 10 ml 10/09/17 13:57 Saline Flush FLUSH ASDIRECTED PRN Keep Vein Open Sodium Chloride 2.5 ml 10/09/17 13:57 Saline Flush FLUSH ASDIRECTED PRN Keep Vein Open Discontinued Medications Generic Name Dose Route Start Last Admin Trade Name Freq PRN Reason Stop Dose Admin Aspirin 324 mg 10/09/17 14:09 10/09/17 14:20 Aspirin PO 10/09/17 14:10 324 mg ONETIME ONE Administration Sodium Chloride 250 mls @ 999 mls/hr 10/09/17 14:04 Normal Saline IV 10/09/17 14:19 .Bolus ONE Metoprolol Tartrate 25 mg 10/09/17 14:31 Lopressor PO 10/09/17 14:32 ONETIME ONE Nitroglycerin Confirm 10/09/17 14:16 Nitrostat Administered 10/09/17 14:17 Dose 0.4 mg .ROUTE .STK-MED ONE Departure - Departure Time of Disposition: 14:36 Disposition: DC/Tfer to Acute Hospital 02 Reason for Transfer *Q: Primary PCI Indicated Condition: Fair Clinical Impression: Acute [place] Qualifiers: Myocardial infarction ST status: ST elevation myocardial infarction Involved coronary artery: unspecified coronary artery Qualified Code(s): I21.3 - ST elevation (STEMI) myocardial infarction of unspecified site Referrals: Jose Luis Oliveira DO [Primary Care Provider] - Forms: ED Department Discharge - My Orders Last 24 Hours: My Active Orders 10/09/17 13:57 Cardiac Monitoring [RC] . DIRECTED EKG Documentation Completion [RC] STAT Oxygen Therapy [RC] ASDIRECTED Pulse Oximetry [RC] ASDIRECTED Chest 1V Frontal [CR] Stat Sodium Chloride 0.9% [Saline Flush] 10 ml FLUSH ASDIRECTED PRN Sodium Chloride 0.9% [Saline Flush] 2.5 ml FLUSH ASDIRECTED PRN Saline Lock Insert [OM.PC] Stat 10/09/17 13:58 COMPREHENSIVE METABOLIC PN,CMP [CHEM] Stat TROPONIN I [CHEM] Stat 10/09/17 14:23 B-TYPE NATRIURETIC PEPTIDE,BNP [CHEM] Stat - Assessment/Plan Last 24 Hours: My Active Orders 10/09/17 13:57 Cardiac Monitoring [RC] . DIRECTED EKG Documentation Completion [RC] STAT Oxygen Therapy [RC] ASDIRECTED Pulse Oximetry [RC] ASDIRECTED Chest 1V Frontal [CR] Stat Sodium Chloride 0.9% [Saline Flush] 10 ml FLUSH ASDIRECTED PRN Sodium Chloride 0.9% [Saline Flush] 2.5 ml FLUSH ASDIRECTED PRN Saline Lock Insert [OM.PC] Stat 10/09/17 13:58 COMPREHENSIVE METABOLIC PN,CMP [CHEM] Stat TROPONIN I [CHEM] Stat 10/09/17 14:23 B-TYPE NATRIURETIC PEPTIDE,BNP [CHEM] Stat
[2017-10-09] MEDS ORDERED: Metoprolol Tartrate 25 MG Tab PO ONE (14:31)
[2017-10-09] MEDS ORDERED: Metoprolol Tartrate 25 MG Tab ONE (14:34)
[2017-10-09 14:35] LABS: CHLORIDE,CL 101 mmol/L (98-110); SODIUM,NA 140 mmol/L (136-146)
--- NOTE | 2017-10-09 14:40 | CR ---
EXAMINATION: Portable chest radiograph. HISTORY: Shortness of breath. FINDINGS: The trachea is midline. The heart is enlarged. The cardiomediastinal silhouette is accentuated by huy hnique. No definite focal consolidation or pleural effusion. Chronic interstitial prominence is noted . Central pulmonary vascular congestion. Median sternotomy wires are present. Osseous structures appear osteopenic. IMPRESSION: Cardiomegaly and interstitial prominence, correlate for CHF.
[2017-10-09 15:05] VITALS: BP 106/71
== END 2017-10-09 14:48 ==
LOC: MW.ED 13:45
DX: I21.3 ST elevation (STEMI) myocardial infarction of unspecified site (principal); I48.91 Unspecified atrial fibrillation; I10 Essential (primary) hypertension; F17.210 Nicotine dependence, cigarettes, uncomplicated; E78.00 Pure hypercholesterolemia, unspecified; Z79.899 Other long term (current) drug therapy; Z95.1 Presence of aortocoronary bypass graft; Z95.5 Presence of coronary angioplasty implant and graft
CPT/HCPCS: 36415; 71010; 80053; 83880; 84484; 85025; 85610; 93005; 99285; A9270; J7040; 99284